=== PATIENT | female | born 1995 | race African-American/Black ===

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

== ENCOUNTER 2017-05-31 12:43 | Emergency (ER) | payer OTHER ==
[~2017-05-31] VITALS: Ht 162.6 cm; Wt 59.0 kg
[~2017-05-31 12:43] MED LIST: CIPR-278 PO; FERR-89 PO; VITAD400 PO
[2017-05-31 13:02] VITALS: BP 129/66
[2017-05-31] MEDS ORDERED: METHOCARBAMOL 500 MG TABLET PO ONE (13:45)
[2017-05-31] MEDS ORDERED: KETOROLAC TROMETHAMINE 60 MG/2 ML VIAL IM ONE (13:45)
== END 2017-05-31 13:53 | disposition home or self-care (01) ==
LOC: EMS 12:44
DX: S13.4XXA Sprain of ligaments of cervical spine, initial encounter (principal); S33.5XXA Sprain of ligaments of lumbar spine, initial encounter; V49.40XA Driver injured in collision with unspecified motor vehicles in traffic accident, initial encounter; Y92.410 Unspecified street and highway as the place of occurrence of the external cause; Y93.89 Activity, other specified; Y99.8 Other external cause status
CPT/HCPCS: 96372; 99283; J1885

== ENCOUNTER 2018-10-28 10:09 | Emergency (ER) | payer OTHER ==
[~2018-10-28] VITALS: Ht 162.6 cm; Wt 54.1 kg
[2018-10-28 10:10] VITALS: BP 120/40
[2018-10-28] MEDS ORDERED: ACETAMINOPHEN 500 MG TABLET PO ONE (12:30)
== END 2018-10-28 13:00 | disposition home or self-care (01) ==
LOC: EMS 10:10
DX: O9A.211 Injury, poisoning and certain other consequences of external causes complicating pregnancy, first trimester (principal); O99.321 Drug use complicating pregnancy, first trimester; S13.4XXA Sprain of ligaments of cervical spine, initial encounter; S80.02XA Contusion of left knee, initial encounter; F12.90 Cannabis use, unspecified, uncomplicated; Z3A.01 Less than 8 weeks gestation of pregnancy; V49.9XXA Car occupant (driver) (passenger) injured in unspecified traffic accident, initial encounter; Y93.89 Activity, other specified; Y92.89 Other specified places as the place of occurrence of the external cause; Y99.8 Other external cause status